=== PATIENT | male | born 1990 | race Two or more races ===

== ENCOUNTER 2019-07-30 08:04 | Emergency (ER) | payer OTHER ==
[~2019-07-30] VITALS: Ht 180.3 cm; Wt 76.2 kg
[2019-07-30] MEDS ORDERED: AFRIN15 ML NASAL (12:59)
[2019-07-30] MEDS ORDERED: ALLERGY RELIEF10 M3 PO (12:59)
[2019-07-30] MEDS ORDERED: CELECOXIB100 MG PO (12:59)
[2019-07-30] MEDS ORDERED: LEVAQUIN750 MG PO (12:59)
== END 2019-07-30 14:31 | disposition home or self-care (01) ==
LOC: ER 08:04
DX: S01.22XA Laceration with foreign body of nose, initial encounter (principal); Y08.89XA Assault by other specified means, initial encounter; Y93.89 Activity, other specified; Y92.89 Other specified places as the place of occurrence of the external cause; Y99.8 Other external cause status